=== PATIENT | female | born 1970 | race Caucasian/White ===

== ENCOUNTER → 2018-03-25 | Outpatient (CLI) | payer BC ==
--- NOTE | 2018-03-28 12:36 | MM ---
Reason for exam: screening (asymptomatic). Last mammogram was performed 1 year and 8 months ago. Physical Findings: A clinical breast exam by your physician is recommended on an annual basis and results should be correlated with mammographic findings. MG Screening Mammo w CAD Bilateral CC, MLO, and XCCL view(s) were taken. Prior study comparison: July 10, 2016, bilateral MG screening mammo w CAD. November 30, 2014, bilateral MG screening mammo w CAD. The breast tissue is heterogeneously dense. This may lower the sensitivity of mammography. Stable benign calcifications. There is no discrete abnormality. No significant changes when compared with prior studies. ASSESSMENT: Benign, BI-RAD 2 RECOMMENDATION: Routine screening mammogram of both breasts in 1 year.
== END | disposition home or self-care (01) ==
LOC: RADMAMWWP 13:36
PROVIDERS: ATTEND Family Medicine
DX: Z12.31 Encounter for screening mammogram for malignant neoplasm of breast (principal)
CPT/HCPCS: 77067

== ENCOUNTER → 2019-06-15 | Outpatient (CLI) | payer BC ==
[2019-06-15 15:44] LABS: Basophils # (A) 0.1 k/uL (0-0.2); Basophils % (A) 1 %; Eosinophils # (A) 0.1 k/uL (0-0.7); Eosinophils % (A) 1 %; HCT 45.9 % (34.0-46.0); HGB 15.3 gm/dL (11.4-16.0); Lymphocytes # (A) 3.4 k/uL (1.0-4.8); Lymphocytes % (A) 38 %; MCH 31.6 pg (25.0-35.0); MCHC 33.3 g/dL (31.0-37.0); Mean Platelet Volume 6.7; Monocytes # (A) 0.4 k/uL (0-1.0); Monocytes % (A) 4 %; Neutrophils # (A) 4.8 k/uL (1.3-7.7); Neutrophils % (A) 54 %; Platelet Count 355 k/uL (150-450); RBC 4.83 m/uL (3.80-5.40)
[2019-06-15 20:21] LABS: African American GFR (CKD) 124.9 (60.0-200.0); Albumin 4.6 g/dL (3.80-4.90); Albumin/Globulin Ratio 2.3 (1.60-3.17); Anion Gap 7.9 mmol/L (4.00-12.00); BUN/Creat Ratio 16.67 Ratio (12.00-20.00); Carbon Dioxide 27.1 mmol/L (21.6-31.8); Chol/HDL Ratio 4.17; LDL Cholesterol,Calculated 148.8 mg/dL (0.0-131.0); Non-African American GFR(CKD) 107.8 (60.0-200.0); Potassium 4.2 mmol/L (3.5-5.5); Total Bilirubin 0.3 mg/dL (0.2-1.2); Total Protein 6.6 g/dL (6.2-8.2); VLDL Calculation 22.2 mg/dL (5.00-40.00)
[2019-06-16 04:38] LABS: Hemoglobin A1C 5.6 % (4.0-6.0)
== END | disposition home or self-care (01) ==
LOC: LABWHC1 14:02
PROVIDERS: ATTEND Internal Medicine
DX: I10 Essential (primary) hypertension (principal); E66.9 Obesity, unspecified
CPT/HCPCS: 36415; 80053; 80061; 83036; 84443; 85025

== ENCOUNTER → 2020-10-22 | Outpatient (CLI) | payer BC ==
--- NOTE | 2020-10-22 16:40 | US ---
EXAMINATION TYPE: US carotid duplex BILAT DATE OF EXAM: 10/22/2020 COMPARISON: NONE CLINICAL HISTORY: CAD due to lipid rich plaque I25.83. Pt states family history of heart disease, pt has no complaints at this time EXAM MEASUREMENTS: RIGHT: Peak Systolic Velocity (PSV) cm/sec ----- Right CCA: 72.9 ----- Right ICA: 88.6 ----- Right ECA: 170.7 ICA/CCA ratio: 1.2 RIGHT: End Diastole cm/sec ----- Right CCA: 29.3 ----- Right ICA: 45.7 ----- Right ECA: 48.5 LEFT: Peak Systolic Velocity (PSV) cm/sec ----- Left CCA: 78.7 ----- Left ICA: 87.5 ----- Left ECA: 83.4 ICA/CCA ratio: 1.1 LEFT: End Diastole cm/sec ----- Left CCA: 32.5 ----- Left ICA: 45.7 ----- Left ECA: 23.2 VERTEBRALS (direction of flow): Right Vertebral: Antegrade Left Vertebral: Antegrade Rhythm: Normal Elevated velocities within right ECA, otherwise no evidence of significant stenosis grayscale, color Doppler, spectral Doppler imaging performed of the carotid arteries. Waveform analysis does not show significant stenosis of the internal carotid arteries. IMPRESSION: No hemodynamic significant stenosis of the proximal internal carotid arteries by Doppler criteria, an indirect measurement of carotid stenosis Criteria for Assigning % of Stenosis / Diameter reduction (Estimation based on the indirect measurements of the internal carotid artery velocities (ICA PSV). 1. Normal (no stenosis)=ICA PSV < 125 cm/s: ratio < 2.0: ICA EDV<40 cm/s. 2. Less than 50% stenosis=ICA PSV < 125 cm/s: ratio < 2.0: ICA EDV<40 cm/s. 3. 50 to 69% stenosis=ICA PSV of 125 to 230 cm/s: ration 2.0 ? 4.0: ICA EDV 40-100 cm/s. 4. Greater than 70% stenosis to near occlusion= ICA PSV > 230 cm/s: ratio > 4.0: ICA EDV > 100 cm/s. 5. Near occlusion= ICA PSV velocities may be low or undetectable: variable ratio and ICA EDV. 6. Total occlusion=unable to detect flow.
--- NOTE | 2020-10-23 07:54 | ECHOF ---
Referral Reason:CAD due to lipid rich plaque I25.83 MEASUREMENTS -------- HEIGHT: 165.1 cm WEIGHT: 88.0 kg BP: RVIDd: 2.7 cm (< 3.3) IVSd: 1.1 cm (0.6 - 1.1) LVIDd: 4.1 cm (3.9 - 5.3) LVPWd: 0.8 cm (0.6 - 1.1) IVSs: 1.2 cm LVIDs: 2.7 cm LVPWs: 1.4 cm LAESV Index (A-L): 15.61 ml/m Ao Diam: 3.3 cm (2.0 - 3.7) AV Cusp: 1.9 cm (1.5 - 2.6) MV EXCURSION: 20.954 mm (> 18.000) MV EF SLOPE: 97 mm/s (70 - 150) EPSS: 0.5 cm MV E Mohamud: 0.87 m/s MV DecT: 228 ms MV A Mohamud: 1.11 m/s MV E/A Ratio: 0.79 RAP: 5.00 mmHg RVSP: 25.62 mmHg FINDINGS -------- Sinus rhythm. This was a technically good study. LV size, wall thickness and systolic function are normal, with an EF greater than 55%. The left jack tricular size is normal. The right ventricle is normal in size. The left atrial size is normal. The right atrial size is normal. The aortic valve is trileaflet, and appears structurally normal. No aortic stenosis or regurgitation. Mild mitral regurgitation is present. Mild tricuspid regurgitation present. Right ventricular systolic pressure is normal at < 35 mmHg. There is no pulmonic regurgitation present. The aortic root size is normal. Echo free space represents a pericardial fat pad. CONCLUSIONS -------- 1. LV size, wall thickness and systolic function are normal, with an EF greater than 55%. 2. The left ventricular size is normal. 3. The right ventricle is normal in size. 4. The left atrial size is normal. 5. The right atrial size is normal. 6. Mild mitral regurgitation is present. 7. Mild tricuspid regurgitation present. 8. The aortic root size is normal. 9. Echo free space represents a pericardial fat pad. PRODUCTION SUPERVISOR TRAINEE: Patricia Ho RDCS
== END | disposition home or self-care (01) ==
LOC: RADECHMAIN 15:15
PROVIDERS: ATTEND Internal Medicine
DX: I08.1 Rheumatic disorders of both mitral and tricuspid valves (principal); I25.10 Atherosclerotic heart disease of native coronary artery without angina pectoris; Z82.49 Family history of ischemic heart disease and other diseases of the circulatory system
CPT/HCPCS: 93306; 93880

== ENCOUNTER → 2021-03-04 | Outpatient (CLI) | payer BC | END | disposition home or self-care (01) | LOC: CPPFTMAIN 12:54 | PROVIDERS: ATTEND Internal Medicine | DX: J44.9 Chronic obstructive pulmonary disease, unspecified (principal) | CPT/HCPCS: 94060; 94726; 94729 ==

== ENCOUNTER → 2021-04-30 | Outpatient (CLI) | payer BC ==
--- NOTE | 2021-04-30 12:45 | US ---
EXAMINATION TYPE: US thyroid st tissue head/neck DATE OF EXAM: 04/30/2021 COMPARISON: EXAMINATION TYPE: US thyroid st tissue head/neck DATE OF EXAM: 04/30/2021 COMPARISON: NONE CLINICAL HISTORY: R22.1 Localized swelling, mass and lump, neck. History of Left parotid mass removal with reconstruction with muscle ? lymph node seen in area of palp measuring 2.3x2.0x1.0cm with positive flow Cystic region seen inferior to lymph node 1.1x0.6x0.5cm Right side scanned to compare. Lymph node seen 1.7x0.7x0.9cm IMPRESSION: Palpable area of concern corresponds to an enlarged lymph node. Correlate clinically.
== END | disposition home or self-care (01) ==
LOC: RADUSWWP 11:54
PROVIDERS: ATTEND Internal Medicine
DX: R22.1 Localized swelling, mass and lump, neck (principal)
CPT/HCPCS: 76536

== ENCOUNTER → 2021-05-03 | Outpatient (CLI) | payer BC ==
--- NOTE | 2021-05-03 13:26 | CT ---
EXAMINATION TYPE: CT soft tissue neck wo/w con DATE OF EXAM: 05/03/2021 COMPARISON: none HISTORY: Abn US, enlarged lymph odes on both sides. History of Lt parotid tumor removal CT DLP: 1072.7 mGycm CONTRAST: CT scan of the neck is performed without and with IV Contrast, patient injected with 100 mL of Isovue 300. Contrast enhanced CT of the neck was performed from the skull base through the lung apices. AIRWAY: The supraglottic, glottic, and subglottic portions of the airway appear patent and free of mass. SALIVARY GLANDS: Submandibular glands are unremarkable. Enhancing 1.7 cm and specific lesion lower po le of the left parotid gland. Mid pole lesion right parotid gland measures 8.4 cm. THYROID GLAND: No nodules or masses seen. LYMPH NODES: Right internal jugular chain lymph node measuring 1.1 cm. Left internal jugular chain ly mph node measuring 8 mm. LUNG APICES: No nodule or mass is seen. OTHER: Vascular structures are patent. No significant degenerative change of the cervical spine. N o abscess seen. IMPRESSION: 1 nonspecific parotid lesions. 2. Adenopathy right internal jugular chain.
== END | disposition home or self-care (01) ==
LOC: RADCTMAIN 09:19
PROVIDERS: ATTEND Internal Medicine
DX: R59.0 Localized enlarged lymph nodes (principal); K11.8 Other diseases of salivary glands
CPT/HCPCS: 70492; Q9967

== ENCOUNTER 2021-05-26 12:16 | Day surgery (SDC) | payer BC ==
--- NOTE | 2021-05-26 14:53 | US ---
ULTRASOUND GUIDED FNA AND CORE BIOPSY BILATERAL PAROTID GLAND: CLINICAL HISTORY: Bilateral parotid nodules FINDINGS: The procedure was explained to the patient. The risks, complications, benefits and alternatives were discussed and any questions were answered. Informed consent was obtained. Patient was placed supin e on the ultrasound table and prepped and draped in the usual sterile fashion. Utilizing a 25 gauge needle, two passes were made into the larger left parotid nodule. Additionally 2 18-gauge core sample s were obtained. The smaller right parotid nodule is deviated reduction was difficult access with core needle and ther efore as requested multiple fine-needle aspirates were obtained.. Patient was stable throughout the procedure. Pathology is pending. All elements of maximal barrier and sterile technique were utilized. IMPRESSION: 1. Successful ultrasound guided FNA and core biopsy left parotid nodule and FNA right parotid nodule .
[2021-05-26 16:12] VITALS: RESP 18
[2021-05-26 16:13] VITALS: BP 114/62; PULSE 68; TEMP 98.2
== END 2021-05-26 14:10 | disposition home or self-care (01) ==
LOC: RADPROMAIN 12:16
PROVIDERS: ATTEND Otolaryngology
DX: D11.0 Benign neoplasm of parotid gland (principal)
CPT/HCPCS: 10005; 10006; 42400; 76942; 88173; 88305

== ENCOUNTER 2021-06-01 09:06 | Emergency (ER) | payer BC ==
--- NOTE | 2021-06-01 10:52 | ED ---
Neck Injury/Pain HPI - General Chief Complaint: Neck Pain/Injury Stated Complaint: neck pain Time Seen by Provider: 06/01/21 10:01 Source: patient, RN notes reviewed Mode of arrival: ambulatory Limitations: no limitations - History of Present Illness Initial Comments: This a 50-year-old female presents emergency from chief complaint left-sided neck pain. Patient states she had a biopsy by Dr. Shelotn ordered by Dr. Kim last Wednesday. She states she has some soreness after biopsy but states now over the last she's had increase in pain, swelling on the left side of her neck, postauricular region where she had the biopsy. Patient denies fevers chills night sweats states that she does have follow-up appointment this week with ENT regarding her results. She does admit that she's had a prior tumor removed in this region. - Related Data Home Medications Medication Instructions Recorded Confirmed Beclomethasone Dipropionate [Qvar 1 puff PO DAILY PRN 05/21/21 06/01/21 80mcg Redihaler] Rosuvastatin [Crestor] 10 mg PO Q48H 05/21/21 06/01/21 amLODIPine [Norvasc] 5 mg PO HS 05/21/21 06/01/21 Previous Rx's Medication Instructions Recorded Amoxicillin/Potassium Clav 1 tab PO Q12HR #20 tab 06/01/21 [Augmentin 875-125 Tablet] Allergies Allergy/AdvReac Type Severity Reaction Status Date / Time No Known Allergies Allergy Verified 06/01/21 10:59 Review of Systems ROS Statement: Those systems with pertinent positive or pertinent negative responses have been documented in the HPI. ROS Other: All systems not noted in ROS Statement are negative. Past Medical History Past Medical History: Asthma, Hyperlipidemia, Hypertension Additional Past Medical History / Comment(s): bilateral parotid massess History of Any Multi-Drug Resistant Organisms: None Reported Past Surgical History: Orthopedic Surgery, Uterine Ablation Additional Past Surgical History / Comment(s): left parotid mass removal 2017, surgery for plantar fascitis in 2018 on left, foot surgery times 2 with screws placed and then removed, left shoulder surgery for torn rotator cuff, neck biopsy Past Anesthesia/Blood Transfusion Reactions: No Reported Reaction Additional Past Anesthesia/Blood Transfusion Reaction / Comment(s): no previous blood transfusion Past Psychological History: No Psychological Hx Reported Smoking Status: Former smoker Past Alcohol Use History: Occasional Past Drug Use History: None Reported - Past Family History Mother Family Medical History: Cancer Additional Family Medical History / Comment(s): lung Father Family Medical History: Cancer Additional Family Medical History / Comment(s): lung General Exam Limitations: no limitations General appearance: alert, in no apparent distress Head exam: Present: atraumatic, normocephalic, normal inspection Eye exam: Present: normal appearance, PERRL, EOMI. Absent: scleral icterus, conjunctival injection, periorbital swelling ENT exam: Present: normal oropharynx, mucous membranes moist, TM's normal bilaterally. Absent: normal exam (Inferior and postauricular the left ear is noted ecchymotic area, swelling, tenderness with palpation no erythema) Neck exam: Present: normal inspection, full ROM. Absent: tenderness, meningismus, lymphadenopathy Respiratory exam: Present: normal lung sounds bilaterally. Absent: respiratory distress, wheezes, rales, rhonchi, stridor Cardiovascular Exam: Present: regular rate, normal rhythm, normal heart sounds. Absent: systolic murmur, diastolic murmur, rubs, gallop, clicks Course Vital Signs 06/01/21 09:07 Temperature 98.3 F Pulse Rate 94 Respiratory 17 Rate Blood Pressure 123/92 O2 Sat by Pulse 96 Oximetry Medical Decision Making - Medical Decision Making 50-year-old female presented presented for neck pain. Patient has some swelling on the site of biopsy. This may be hematoma versus abscess. Patient we cover for an abscess has a follow-up appointment on Wednesday with ENT return parameters were discussed. - Lab Data Result diagrams: 06/01/21 10:57 06/01/21 10:57 Lab Results 06/01/21 06/01/21 Range/Units 10:57 10:57 WBC 7.1 (3.8-10.6) k/uL RBC 4.87 (3.80-5.40) m/uL Hgb 15.4 (11.4-16.0) gm/dL Hct 45.9 (34.0-46.0) % MCV 94.2 (80.0-100.0) fL MCH 31.7 (25.0-35.0) pg MCHC 33.6 (31.0-37.0) g/dL RDW 13.4 (11.5-15.5) % Plt Count 342 (150-450) k/uL MPV 6.9 Neutrophils % 53 % Lymphocytes % 38 % Monocytes % 5 % Eosinophils % 2 % Basophils % 1 % Neutrophils # 3.8 (1.3-7.7) k/uL Lymphocytes # 2.7 (1.0-4.8) k/uL Monocytes # 0.3 (0-1.0) k/uL Eosinophils # 0.2 (0-0.7) k/uL Basophils # 0.1 (0-0.2) k/uL Sodium 138 (137-145) mmol/L Potassium 4.6 (3.5-5.1) mmol/L Chloride 108 H (98-107) mmol/L Carbon Dioxide 23 (22-30) mmol/L Anion Gap 7 mmol/L BUN 12 (7-17) mg/dL Creatinine 0.59 (0.52-1.04) mg/dL Est GFR (CKD-EPI)AfAm >90 (>60 ml/min/1.73 sqM) Est GFR (CKD-EPI)NonAf >90 (>60 ml/min/1.73 sqM) Glucose 94 (74-99) mg/dL Calcium 9.9 (8.4-10.2) mg/dL Disposition Clinical Impression: Hematoma of neck Disposition: HOME SELF-CARE Condition: Stable Instructions (If sedation given, give patient instructions): Hematoma (ED) Additional Instructions: Please return to the Emergency Department if symptoms worsen or any other concerns. Prescriptions: Amoxicillin/Potassium Clav [Augmentin 875-125 Tablet] 1 tab PO Q12HR #20 tab Is patient prescribed a controlled substance at d/c from ED?: No Referrals: Dimitri Gruber MD [Primary Care Provider] - 1-2 days Time of Disposition: 12:14
[2021-06-01 11:05] LABS: Basophils # (A) 0.1 k/uL (0-0.2); Basophils % (A) 1 %; Eosinophils # (A) 0.2 k/uL (0-0.7); Eosinophils % (A) 2 %; HCT 45.9 % (34.0-46.0); HGB 15.4 gm/dL (11.4-16.0); Lymphocytes # (A) 2.7 k/uL (1.0-4.8); Lymphocytes % (A) 38 %; MCH 31.7 pg (25.0-35.0); MCHC 33.6 g/dL (31.0-37.0); MCV 94.2 fL (80.0-100.0); Mean Platelet Volume 6.9; Monocytes # (A) 0.3 k/uL (0-1.0); Monocytes % (A) 5 %; Neutrophils # (A) 3.8 k/uL (1.3-7.7); Neutrophils % (A) 53 %; Platelet Count 342 k/uL (150-450); RBC 4.87 m/uL (3.80-5.40); RDW 13.4 % (11.5-15.5); WBC 7.1 k/uL (3.8-10.6)
[2021-06-01 11:21] LABS: African American GFR (CKD) >90 (>60 ml/min/1.73 sqM); Anion Gap 7 mmol/L; Blood Urea Nitrogen 12 mg/dL (7-17); Calcium 9.9 mg/dL (8.4-10.2); Carbon Dioxide 23 mmol/L (22-30); Chloride 108 mmol/L (98-107); Glucose 94 mg/dL (74-99); Non-African American GFR(CKD) >90 (>60 ml/min/1.73 sqM); Sodium 138 mmol/L (137-145)
[2021-06-01 11:27] LABS: Potassium 4.6 mmol/L (3.5-5.1)
--- NOTE | 2021-06-01 11:41 | CT ---
EXAMINATION TYPE: CT soft tissue neck w con DATE OF EXAM: 06/01/2021 11:17 AM COMPARISON: 05/03/2021 HISTORY: Lt sided jaw and ear pain, neck swelling, Parotid bx on 05/26/2021 CT DLP: 290.3 mGycm Automated exposure control for dose reduction was used. CONTRAST: CT scan of the neck is performed following with IV Contrast, patient injected with 100 mL of Isovue 3 00. Axial images are obtained, coronal and sagittal reformatted images are reviewed. FINDINGS: Airway: Patent airways. Upper lung COPD/emphysema changes. Parotid/submandibular/thyroid glands: There is a bilobed peripherally enhancing centrally low attenu ating lesion in the inferior pole of the left parotid gland at the site of previously seen enhancing left parotid lesion. This bilobed structure has a dimension of 2.1 x 1.8 x 1.5 cm. Mild overlying sof t tissue swelling. A 1.1 x 0.7 cm enhancing lesion the right parotid gland is stable. Submandibular glands are unremarka ble. Stable small calcific density in the right thyroid lobe. Lymph nodes: 1.1 cm right internal jugular chain lymph node stable. Carotid/Vascular Structures: Unremarkable. Osseous Structures: Small amount of bilateral mastoid air cell effusion developed in the interval. A destructive or erosive osseous changes seen. Degenerative changes are noted in the cervical spine. Other: No prevertebral soft tissue swelling seen. Included inferior portion of the brain is unremarka ble. IMPRESSION: 1. In the left parotid gland at the site of biopsy and previously seen enhancing mass there is now a bilobed peripherally enhancing centrally low attenuating lesion which may be reflective of postsurgic al hematoma/changes and/or developing abscess, this measures 2.1 x 1.8 x 1.5 cm. There is mild overly ing soft tissue swelling. 2. Stable 1.1 cm enhancing lesion the right parotid gland. 3. Stable enlarged 1.1 cm right internal jugular chain lymph node. 4. Small amount of bilateral mastoid air cell effusion developed in the interval. 5. Stable calcific nodule in the right thyroid lobe.
[2021-06-01] MEDS ORDERED: cefTRIAXone IN SWFI 1,000 MG/10 ML SYRINGE IVP STA (12:12)
[2021-06-01 12:37] VITALS: BP 123/81; PULSE 75; RESP 20; TEMP 98.1
== END 2021-06-01 12:37 | disposition home or self-care (01) ==
LOC: EC 09:06
DX: S10.93XA Contusion of unspecified part of neck, initial encounter (principal); J45.909 Unspecified asthma, uncomplicated; E78.5 Hyperlipidemia, unspecified; I10 Essential (primary) hypertension; Z79.899 Other long term (current) drug therapy; Z87.891 Personal history of nicotine dependence; Z72.89 Other problems related to lifestyle
CPT/HCPCS: 36415; 80048; 85025; 70491; 99284; 96374; J0696; Q9967

== ENCOUNTER 2022-01-02 12:39 | Emergency (ER) | payer BC ==
--- NOTE | 2022-01-02 12:43 | ED ---
General Adult HPI - General Source: patient, EMS, RN notes reviewed Mode of arrival: EMS Limitations: no limitations <Tanner Quan - Last Filed: 01/02/22 12:41> <Vitaly Decker - Last Filed: 01/02/22 16:18> - General Stated complaint: Abd pain Time Seen by Provider: 01/02/22 12:41 - History of Present Illness Initial comments: This is a 51-year-old female presents emergency from via EMS chief complaint abdominal pain. Patient was brought in via EMS with complaints of increasing abdominal pain that started yesterday. Patient is 9 days status post cholecystectomy by Dr. Grant. Patient was seen in office by surgeon sent to [facility] yesterday for testing in which she had CT, lab work with no specific findings. Dr. Grant did request that she have a HIDA scan but was unable to be performed. Patient states that the pain is increased after being discharged with Pepcid she states she did try her pain meds that she had leftover from surgery. Patient was given 100 g of fentanyl by EMS with mild relief. Patient reports no fevers or chills. She states the pain is in her upper abdomen radiates around to the back. (Tanner Quan) - Related Data Home Medications Medication Instructions Recorded Confirmed Beclomethasone Dipropionate [Qvar 1 puff PO DAILY PRN 05/21/21 06/01/21 80mcg Redihaler] Rosuvastatin [Crestor] 10 mg PO Q48H 05/21/21 06/01/21 amLODIPine [Norvasc] 5 mg PO HS 05/21/21 06/01/21 Previous Rx's Medication Instructions Recorded Amoxicillin/Potassium Clav 1 tab PO Q12HR #20 tab 06/01/21 [Augmentin 875-125 Tablet] Allergies Allergy/AdvReac Type Severity Reaction Status Date / Time No Known Allergies Allergy Verified 01/02/22 12:46 Review of Systems ROS Other: All systems not noted in ROS Statement are negative. <Tanner Quan - Last Filed: 01/02/22 12:41> ROS Other: All systems not noted in ROS Statement are negative. <Vitaly Decker - Last Filed: 01/02/22 16:18> ROS Statement: Those systems with pertinent positive or pertinent negative responses have been documented in the HPI. Past Medical History Past Medical History: Asthma, Hyperlipidemia, Hypertension Additional Past Medical History / Comment(s): bilateral parotid massess History of Any Multi-Drug Resistant Organisms: None Reported Past Surgical History: Orthopedic Surgery, Uterine Ablation Additional Past Surgical History / Comment(s): left parotid mass removal 2017, surgery for plantar fascitis in 2018 on left, foot surgery times 2 with screws placed and then removed, left shoulder surgery for torn rotator cuff, neck biopsy Past Anesthesia/Blood Transfusion Reactions: No Reported Reaction Additional Past Anesthesia/Blood Transfusion Reaction / Comment(s): no previous blood transfusion Past Psychological History: No Psychological Hx Reported Smoking Status: Former smoker Past Alcohol Use History: Occasional Past Drug Use History: None Reported - Past Family History Mother Family Medical History: Cancer Additional Family Medical History / Comment(s): lung Father Family Medical History: Cancer Additional Family Medical History / Comment(s): lung <Tanner Quan M - Last Filed: 01/02/22 12:41> General Exam General appearance: alert, in distress Head exam: Present: atraumatic, normocephalic Eye exam: Present: normal appearance, PERRL ENT exam: Present: mucous membranes dry Neck exam: Present: normal inspection. Absent: tenderness, meningismus Respiratory exam: Present: normal lung sounds bilaterally. Absent: respiratory distress, wheezes Cardiovascular Exam: Present: regular rate, normal rhythm GI/Abdominal exam: Present: soft, tenderness (Epigastric). Absent: distended Extremities exam: Present: normal inspection, normal capillary refill. Absent: pedal edema, calf tenderness Neurological exam: Present: alert, oriented X3, CN II-XII intact. Absent: motor sensory deficit Psychiatric exam: Present: anxious Skin exam: Present: warm, dry, intact. Absent: cyanosis, diaphoretic <Vitaly Decker N - Last Filed: 01/02/22 16:18> Course Vital Signs 01/02/22 12:40 Temperature 98.6 F Pulse Rate 100 Respiratory 18 Rate Blood Pressure 117/77 O2 Sat by Pulse 96 Oximetry Medical Decision Making - Lab Data Result diagrams: 01/02/22 14:15 01/02/22 14:15 <Vitaly Decker - Last Filed: 01/02/22 16:18> - Medical Decision Making 51-year-old female with persistent abdominal pain. Patient was seen at outside hospital yesterday. She has CT of the abdomen and laboratory testing performed. The CT read was reviewed and did not show any acute findings. The laboratory tests were unremarkable yesterday. She is in moderate to severe pain which is predominantly epigastric. Vital signs are stable. Workup is initiated in the emergency department, she has a normal CBC, CMP shows an elevated bilirubin, elevated AST and ALT. I did perform an ultrasound to evaluate the common bile duct this was unremarkable. I discussed case with Dr. Grant was familiar with the patient, she does recommend MRCP at this time. MRCP has been ordered pat ient will be kept nothing by mouth. She will be admitted for pain control. (Vitaly Decker) - Lab Data Lab Results 01/02/22 01/02/22 01/02/22 Range/Units 14:15 14:15 14:15 WBC 9.2 (3.8-10.6) k/uL RBC 4.61 (3.80-5.40) m/uL Hgb 14.8 (11.4-16.0) gm/dL Hct 43.7 (34.0-46.0) % MCV 94.8 (80.0-100.0) fL MCH 32.2 (25.0-35.0) pg MCHC 34.0 (31.0-37.0) g/dL RDW 12.9 (11.5-15.5) % Plt Count 343 (150-450) k/uL MPV 7.1 Neutrophils % 71 % Lymphocytes % 20 % Monocytes % 7 % Eosinophils % 1 % Basophils % 1 % Neutrophils # 6.5 (1.3-7.7) k/uL Lymphocytes # 1.8 (1.0-4.8) k/uL Monocytes # 0.7 (0-1.0) k/uL Eosinophils # 0.1 (0-0.7) k/uL Basophils # 0.1 (0-0.2) k/uL Sodium 136 L (137-145) mmol/L Potassium 4.1 (3.5-5.1) mmol/L Chloride 105 (98-107) mmol/L Carbon Dioxide 25 (22-30) mmol/L Anion Gap 6 mmol/L BUN 11 (7-17) mg/dL Creatinine 0.66 (0.52-1.04) mg/dL Est GFR (CKD-EPI)AfAm >90 (>60 ml/min/1.73 sqM) Est GFR (CKD-EPI)NonAf >90 (>60 ml/min/1.73 sqM) Glucose 106 H (74-99) mg/dL Plasma Lactic Acid Jean Paul (0.7-2.0) mmol/L Calcium 9.9 (8.4-10.2) mg/dL Total Bilirubin 2.7 H (0.2-1.3) mg/dL AST 379 H (14-36) U/L ALT 257 H (4-34) U/L Alkaline Phosphatase 171 H (38-126) U/L Total Protein 7.0 (6.3-8.2) g/dL Albumin 4.4 (3.5-5.0) g/dL Amylase 73 (30-110) U/L Lipase 63 (23-300) U/L Urine Color Dark Yellow Urine Appearance Cloudy H (Clear) Urine pH 6.5 (5.0-8.0) Ur Specific [place] 1.013 (1.001-1.035) Urine Protein Trace H (Negative) Urine Glucose (UA) Negative (Negative) Urine Ketones Negative (Negative) Urine Blood Negative (Negative) Urine Nitrite Negative (Negative) Urine Bilirubin 1+ H (Negative) Urine Urobilinogen <2.0 (<2.0) mg/dL Ur Leukocyte Esterase Large H (Negative) Urine RBC 2 (0-5) /hpf Urine WBC 8 H (0-5) /hpf Ur Squamous Epith Cells 10 H (0-4) /hpf Urine Bacteria Rare H (None) /hpf Urine Mucus Occasional H (None) /hpf 01/02/22 Range/Units 14:15 WBC (3.8-10.6) k/uL RBC (3.80-5.40) m/uL Hgb (11.4-16.0) gm/dL Hct (34.0-46.0) % MCV (80.0-100.0) fL MCH (25.0-35.0) pg MCHC (31.0-37.0) g/dL RDW (11.5-15.5) % Plt Count (150-450) k/uL MPV Neutrophils % % Lymphocytes % % Monocytes % % Eosinophils % % Basophils % % Neutrophils # (1.3-7.7) k/uL Lymphocytes # (1.0-4.8) k/uL Monocytes # (0-1.0) k/uL Eosinophils # (0-0.7) k/uL Basophils # (0-0.2) k/uL Sodium (137-145) mmol/L Potassium (3.5-5.1) mmol/L Chloride (98-107) mmol/L Carbon Dioxide (22-30) mmol/L Anion Gap mmol/L BUN (7-17) mg/dL Creatinine (0.52-1.04) mg/dL Est GFR (CKD-EPI)AfAm (>60 ml/min/1.73 sqM) Est GFR (CKD-EPI)NonAf (>60 ml/min/1.73 sqM) Glucose (74-99) mg/dL Plasma Lactic Acid Jean Paul 0.9 (0.7-2.0) mmol/L Calcium (8.4-10.2) mg/dL Total Bilirubin (0.2-1.3) mg/dL AST (14-36) U/L ALT (4-34) U/L Alkaline Phosphatase (38-126) U/L Total Protein (6.3-8.2) g/dL Albumin (3.5-5.0) g/dL Amylase (30-110) U/L Lipase (23-300) U/L Urine Color Urine Appearance (Clear) Urine pH (5.0-8.0) Ur Specific [place] (1.001-1.035) Urine Protein (Negative) Urine Glucose (UA) (Negative) Urine Ketones (Negative) Urine Blood (Negative) Urine Nitrite (Negative) Urine Bilirubin (Negative) Urine Urobilinogen (<2.0) mg/dL Ur Leukocyte Esterase (Negative) Urine RBC (0-5) /hpf Urine WBC (0-5) /hpf Ur Squamous Epith Cells (0-4) /hpf Urine Bacteria (None) /hpf Urine Mucus (None) /hpf Disposition <Tanner Quan - Last Filed: 01/02/22 12:41> Is patient prescribed a controlled substance at d/c from ED?: No Time of Disposition: 16:18 <Vitaly Decker - Last Filed: 01/02/22 16:18> Clinical Impression: Abdominal pain, Hyperbilirubinemia, Transaminitis Disposition: ADMITTED IP TO THIS [facility] Condition: Stable Referrals: Walter Matthew MD [Primary Care Provider] - 1-2 days
[2022-01-02 12:45] VITALS: BP 117/77; PULSE 100; RESP 18; TEMP 98.6
[2022-01-02] MEDS ORDERED: SODIUM CHLORIDE 0.9% 500 ML 500 ML IV ONE (14:09)
[2022-01-02] MEDS ORDERED: HYDROmorphone 1 MG/ML 1 ML SYRINGE IVP STA ×2 (14:09→15:04)
[2022-01-02 14:27] LABS: Basophils # (A) 0.1 k/uL (0-0.2); Basophils % (A) 1 %; Eosinophils # (A) 0.1 k/uL (0-0.7); Eosinophils % (A) 1 %; HCT 43.7 % (34.0-46.0); HGB 14.8 gm/dL (11.4-16.0); Lymphocytes # (A) 1.8 k/uL (1.0-4.8); Lymphocytes % (A) 20 %; MCH 32.2 pg (25.0-35.0); MCV 94.8 fL (80.0-100.0); Mean Platelet Volume 7.1; Monocytes # (A) 0.7 k/uL (0-1.0); Monocytes % (A) 7 %; Neutrophils # (A) 6.5 k/uL (1.3-7.7); Neutrophils % (A) 71 %; Platelet Count 343 k/uL (150-450); RBC 4.61 m/uL (3.80-5.40); RDW 12.9 % (11.5-15.5); WBC 9.2 k/uL (3.8-10.6)
[2022-01-02 14:37] LABS: ALT 257 U/L (4-34); AST 379 U/L (14-36); African American GFR (CKD) >90 (>60 ml/min/1.73 sqM); Albumin 4.4 g/dL (3.5-5.0); Alkaline Phosphatase 171 U/L (38-126); Amylase 73 U/L (30-110); Anion Gap 6 mmol/L; Blood Urea Nitrogen 11 mg/dL (7-17); Calcium 9.9 mg/dL (8.4-10.2); Carbon Dioxide 25 mmol/L (22-30); Chloride 105 mmol/L (98-107); Glucose 106 mg/dL (74-99); Lipase 63 U/L (23-300); Non-African American GFR(CKD) >90 (>60 ml/min/1.73 sqM); Potassium 4.1 mmol/L (3.5-5.1); Sodium 136 mmol/L (137-145); Total Bilirubin 2.7 mg/dL (0.2-1.3)
[2022-01-02 14:47] LABS: Appearance,Urine Cloudy (Clear); Bacteria,Urine Rare /hpf; Bilirubin,Urine 1+ (Negative); Blood,Urine Negative (Negative); Color,Urine Dark Yellow; Glucose,Urine (UA) Negative (Negative); Ketones,Urine Negative (Negative); Leukocyte Esterase,Urine Large (Negative); Mucus,Urine Occasional /hpf; Nitrite,Urine Negative (Negative); PH, Urine 6.5 (5.0-8.0); Protein,Urine Trace (Negative); RBC,Urine 2 /hpf (0-5); Specific Gravity,Urine 1.013 (1.001-1.035); Squamous Epithelial Cell,Urine 10 /hpf (0-4); Urobilinogen,Urine <2.0 mg/dL (<2.0); WBC,Urine 8 /hpf (0-5)
--- NOTE | 2022-01-02 15:49 | US ---
EXAMINATION TYPE: US gallbladder DATE OF EXAM: 01/02/2022 COMPARISON: US CLINICAL HISTORY: ab pain. ABD pain s/p recent GB removal EXAM MEASUREMENTS: Liver Length: 15.1 cm CBD: 0.5 cm Right Kidney: 9.3 x 4.3 x 4.3 cm Pancreas: Obscured by bowel gas Liver: Visualized portions appeared wnl Gallbladder: Surgically absent Evidence for sonographic Rasmussen's sign: N/A, pain in the right upper quadrant. CBD: wnl Right Kidney: wnl, lower pole gassed out IMPRESSION: Hepatocellular disease most commonly relating to hepatic steatosis.
[2022-01-02] MEDS ORDERED: ONDANSETRON 4 MG/2 ML VIAL IVP PRN (16:14)
[2022-01-02] MEDS ORDERED: HYDROmorphone 0.5 MG/0.5 ML SYRINGE IVP PRN (16:14)
[2022-01-02] MEDS ORDERED: HYDROmorphone 1 MG/ML 1 ML SYRINGE IVP PRN (16:14)
[2022-01-02] MEDS ORDERED: NALOXONE 0.4 MG/ML 1 ML VIAL IV PRN (16:14)
--- NOTE | 2022-01-02 16:14 | XR ---
EXAMINATION TYPE: XR KUB DATE OF EXAM: 01/02/2022 3:54 PM INDICATION: Patient age:Female; 51 years old; Reason for study: ab pain; COMPARISON: None. TECHNIQUE: One radiographic view of the abdomen was obtained. FINDINGS: Cholecystectomy clips are present. The bowel gas pattern is nonspecific without dilated loo ps of small or large bowel. There is no evidence for organomegaly or pneumoperitoneum. The osseous s tructures are intact. Multilevel disc degeneration changes are seen throughout the spine. No abnormal calcifications are present. Fecal material and gas are demonstrated throughout the colon and rectum. IMPRESSION: Nonspecific bowel gas pattern without radiographic evidence for acute process.
[2022-01-02] MEDS ORDERED: PANTOPRAZOLE 40 MG/10 ML VIAL IV SCH (16:15)
[2022-01-02] MEDS ORDERED: SODIUM CHLORIDE 0.9% 1,000 ML IV SCH (16:15)
[2022-01-02] MEDS ORDERED: PIPERACILLIN-TAZOBACTAM 3.375 GM in SODIUM CHLORIDE 0.9% 100 ML IVPB STA (16:42)
== END 2022-01-02 19:30 | disposition other institution (70) ==
LOC: EC 12:39 → UNDOADMIN 16:14 → 4SSUR 16:14 → EC 19:30
DX: E80.6 Other disorders of bilirubin metabolism (principal); J45.909 Unspecified asthma, uncomplicated; E78.5 Hyperlipidemia, unspecified; I10 Essential (primary) hypertension; Z87.891 Personal history of nicotine dependence
CPT/HCPCS: 36415; 80053; 82150; 83605; 83690; 85025; 81001; 74018; 76705; 99285; 96365; 96366; 96361; 96375; 96376; J2543; J1170; C9113

== ENCOUNTER → 2022-02-12 | Outpatient (CLI) | payer BC ==
[2022-02-12 18:28] LABS: ALT 18 U/L (8-44); AST 19 U/L (13-35); Albumin 4.5 g/dL (3.8-4.9); Albumin/Globulin Ratio 1.55 (1.60-3.17); Alkaline Phosphatase 123 U/L (41-126); Bilirubin, Conjugated <0.20 mg/dL (0.20-0.40); Globulin 2.9 g/dL (1.6-3.3); Total Bilirubin <0.15 mg/dL (0.30-1.20); Total Protein 7.4 g/dL (6.2-8.2)
== END | disposition home or self-care (01) ==
LOC: LABWHC1 14:21
PROVIDERS: ATTEND Internal Medicine Gastroenterology
DX: R74.01 Elevation of levels of liver transaminase levels (principal)
CPT/HCPCS: 36415; 80076

== ENCOUNTER → 2022-02-12 | Outpatient (CLI) | payer BC ==
--- NOTE | 2022-02-13 08:15 | MM ---
Reason for Exam: Screening (asymptomatic). Last mammogram was performed 3 year(s) and 11 month(s) ago. Patient History: Menarche at age 12. First Full-Term at age 17. Postmenopausal. Risk Values: Veronica 5 year model risk: 0.7%. NCI Lifetime model risk: 6.4%. Prior Study Comparison: 11/30/2014 Bilateral Screening Mammogram, [facility]. 07/10/2016 Bilateral Screening Mammogram, [facility]. 03/25/2018 Bilateral Screening Mammogram, [facility]. Tissue Density: There are scattered fibroglandular densities. Findings: Analyzed By CAD. There is no suspicious group of microcalcifications or new suspicious mass in either breast. Overall Assessment: Negative, BI-RAD 1 Management: Screening Mammogram of both breasts in 1 year. A clinical breast exam by your physician is recommended on an annual basis and results should be correlated with mammographic findings. Electronically signed and approved by: Vitaly Burciaga DO
== END | disposition home or self-care (01) ==
LOC: RADMAMWWP 14:23
PROVIDERS: ATTEND Internal Medicine Geriatric Medicine
DX: Z12.31 Encounter for screening mammogram for malignant neoplasm of breast (principal); Z78.0 Asymptomatic menopausal state
CPT/HCPCS: 77067

== ENCOUNTER → 2022-12-30 | Outpatient (CLI) | payer BC ==
--- NOTE | 2022-12-30 11:46 | US ---
EXAMINATION TYPE: US abdomen complete DATE OF EXAM: 12/30/2022 COMPARISON: US 2021 CLINICAL INDICATION: Female, 52 years old with history of R10.9 ABDOMINAL PAIN; LUQ discomfort x 1 ye ar TECHNIQUE: Multiple sonographic images of the abdomen are obtained. FINDINGS: EXAM MEASUREMENTS: Liver Length: 15.8 cm CBD: 0.5 cm Spleen: 10.5 cm Right Kidney: 10.9 x 5.2 x 4.5 cm Left Kidney: 10.9 x 6.9 x 4.9 cm Pancreas: visualized portions wnl, limited by overlying midline bowel gas Liver: scanned intercostally, visualized portions wnl Gallbladder: surgically absent Evidence for sonographic Rasmussen's sign: no CBD: visualized portions wnl, limited by overlying bowel gas Spleen: wnl Right Kidney: wnl Left Kidney: wnl Upper IVC: wnl Abd Aorta: wnl IMPRESSION: 1. No acute ultrasound abdomen abnormality
== END | disposition home or self-care (01) ==
LOC: RADUSWWP 09:55
PROVIDERS: ATTEND Internal Medicine Geriatric Medicine
DX: R10.9 Unspecified abdominal pain (principal)
CPT/HCPCS: 76700

== ENCOUNTER → 2023-01-01 | Outpatient (CLI) | payer BC ==
--- NOTE | 2023-01-01 19:00 | CT ---
EXAMINATION TYPE: CT abdomen pelvis w con DATE OF EXAM: 01/01/2023 COMPARISON: Ultrasound 12/30/2022 HISTORY: 52-year-old female R10.9, Left sided epigastric abdominal pain. TECHNIQUE: Contiguous axial scanning of the abdomen and pelvis following administration of 100 ml Iso nita 300 IV contrast. Delayed images through the kidneys and coronal/sagittal reconstructions perform ed. CT DLP: 1371.7 mGycm Automated exposure control for dose reduction was used. FINDINGS: LUNG BASES: A 4 mm posterolateral right basilar pulmonary nodule as well as a 4 mm lateral left basil ar pulmonary nodule. Middle emphysematous change noted. Three-month follow-up CT chest to reassess th joi nodules and also to survey the remainder of the lungs. No pleural effusion. Heart normal size wit hout pericardial effusion. LIVER/GB: Gallbladder surgically absent. Otherwise, no significant abnormality is appreciated. PANCREAS: No significant abnormality is seen. SPLEEN: No significant abnormality is seen. ADRENALS: 1.9 cm left adrenal nodule. Statistically representing an adrenal adenoma. Repeat CT in 12 months to ensure stability. Right adrenal gland within normal limits. KIDNEYS: Posterior right renal cortical cyst measuring 1.8 cm. No hydronephrosis or other discrete ab normality is seen. BOWEL: Nondilated small bowel. Mild stool burden. Oral contrast progressed to the lower descending co rao. No pericolic inflammatory change. Normal appendix. LYMPH NODES: No significant abnormality is seen. OTHER: No free fluid or free air. Minimal atherosclerotic calcifications infrarenal abdominal aorta. PELVIS: Bladder partially distended. Uterus anteverted. Small bilateral ovaries. No abnormal fluid co llection in the pelvis or pelvic lymphadenopathy. BONES: No significant abnormality is seen. IMPRESSION: 1. A COUPLE 4 MM PULMONARY NODULES IN THE LOWER LUNGS. RECOMMEND THREE-MONTH FOLLOW-UP CT CHEST TO RE ASSESS AND ALSO TO SURVEY THE REMAINDER OF THE LUNGS. 2. A 1.9 CM LEFT ADRENAL NODULE, LIKELY BENIGN, INCIDENTAL ADRENAL ADENOMA. RECOMMEND 12 MONTH FOLLOW -UP ADRENAL CT TO ENSURE STABILITY. 3. NO ACUTE INFLAMMATORY PROCESS IDENTIFIED IN THE ABDOMEN OR PELVIS TO EXPLAIN THE PATIENT'S SYMPTOM S.
== END | disposition home or self-care (01) ==
LOC: RADCTMAIN 12:19
PROVIDERS: ATTEND Internal Medicine Geriatric Medicine
DX: E27.9 Disorder of adrenal gland, unspecified (principal); R91.8 Other nonspecific abnormal finding of lung field
CPT/HCPCS: 74177; Q9967

== ENCOUNTER → 2023-04-20 | Outpatient (CLI) | payer BC ==
--- NOTE | 2023-04-20 09:44 | CT ---
EXAMINATION TYPE: CT chest w con CT DLP: 523.80 mGycm, Automated exposure control for dose reduction was used. DATE OF EXAM: 04/20/2023 9:08 AM COMPARISON: 01/01/2023 CLINICAL INDICATION:Female, 52 years old with history of R91.1 PULMONARY NODULE; [facility], Nodule was seen on last CT scan. Scanned by SO/SLS TECHNIQUE: Multiple axial images were obtained through the chest. Sagittal and coronal reformats were created for review. Contrast used:100mL mL of Isovue 300 with IV Contrast (None if empty) Oral contrast used: (None if empty) FINDINGS: LUNGS/ PLEURA: Mild scattered centrilobular emphysema changes. Stable left lower lobe 4 mm pulmonary nodule which may represent intrafissural lymph node. Stable right lower lobe 4 mm pulmonary nodule. R ight minor fissure intrafissural lymph node measuring 3 mm. No suspicious pulmonary nodules identifie d. No focal consolidation, pneumothorax or pleural fusion. AIRWAY: Patent and unremarkable. HEART: Size within normal limits. Mild to moderate coronary artery calcifications. MEDIASTINUM: No gross evidence of adenopathy. VASCULATURE: No aortic aneurysm. MUSCULOSKELETAL: Mild disc degeneration changes are present throughout the thoracolumbar spine. SOFT TISSUES/LYMPH NODES: Right thyroid lobe calcification. Left-sided 9 mm nodule. LOWER NECK: No significant findings. UPPER ABDOMEN: Diffuse low-attenuation to the liver parenchyma. The gallbladder surgically absent. Ri ght renal cyst. IMPRESSION: 1. Stable pulmonary nodular changes in the lung bases. No new pulmonary nodules or enlarged pulmonar y nodules which are suspicious. This is superimposed on mild emphysema changes. Recommend yearly low- dose lung cancer screening. 2. Hepatic steatosis. 3. Mild to moderate coronary artery cusp patient's.
== END | disposition home or self-care (01) ==
LOC: RADCTMAIN 08:33
PROVIDERS: ATTEND Internal Medicine Geriatric Medicine
DX: R91.1 Solitary pulmonary nodule (principal); K76.0 Fatty (change of) liver, not elsewhere classified; J43.2 Centrilobular emphysema
CPT/HCPCS: 71260; 36415; Q9967

== ENCOUNTER → 2023-09-24 | Outpatient (CLI) | payer BC ==
--- NOTE | 2023-09-24 11:32 | CT ---
EXAMINATION: CT ABDOMEN AND PELVIS WITH IV CONTRAST DATE OF EXAMINATION: 09/24/2023. COMPARISON: None available. INDICATION: Left-sided abdominal pain. PROCEDURE: Axial CT of the abdomen and pelvis was performed with contrast and sagittal and coronal reformatted images were performed. CT dose lowering techniques were used, to include: automated expos ure control, adjustment for patient size, and/or use of iterative reconstruction. 100 mL of Isovue 30 0 was given intravenously. FINDINGS: LOWER CHEST : The visualized lung bases are clear. There are no pleural or pericardial effusions. ABDOMEN: Liver and Biliary system: Normal. Adrenal glands: 2 cm nonspecific left adrenal nodule. The right adrenal appears unremarkable. Kidneys and ureters: 1.8 cm cyst in the interpolar region of the right kidney. The kidneys otherwise appear unremarkable. Spleen: Normal. Pancreas: Normal. Gallbladder: Surgically absent. Lymph nodes, Peritoneum and mesentery: There is no mesenteric or retroperitoneal lymphadenopathy. Gastrointestinal tract: There are no dilated loops of bowel or free intraperitoneal air. The appe ndix is normal. Aorta/IVC: There is mild vascular calcification throughout the abdominal aorta without evidence of aneurysmal dilation or dissection. IVC normal. Abdominal wall: Normal. PELVIS: Fluid: There is no free fluid in the pelvis. Lymph Nodes: There is no pelvic or inguinal lymphadenopathy.. Urinary bladder: Normal. BONES: There are no osseous destructive lesions.. ADDITIONAL SIGNIFICANT FINDINGS: None. IMPRESSION: No acute process within the abdomen or pelvis.
== END | disposition home or self-care (01) ==
LOC: RADCTMAIN 09:12
PROVIDERS: ATTEND Internal Medicine Geriatric Medicine
DX: K57.92 Diverticulitis of intestine, part unspecified, without perforation or abscess without bleeding (principal); R10.9 Unspecified abdominal pain
CPT/HCPCS: 74177; Q9967

== ENCOUNTER → 2024-04-14 | Outpatient (CLI) | payer BC ==
--- NOTE | 2024-04-17 14:32 | MM ---
Reason for Exam: Screening (asymptomatic). Last mammogram was performed 1 year(s) and 1 month(s) ago. Patient History: Menarche at age 12. First Full-Term at age 17. Postmenopausal. Risk Values: Veronica 5 year model risk: 0.8%. NCI Lifetime model risk: 6.2%. Prior Study Comparison: 03/25/2018 Bilateral Screening Mammogram, [facility]. 02/12/2022 Bilateral MG screening mammo w CAD, [facility]. 04/09/2023 Bilateral MG 3D screening mammo w/cad, [facility]. Tissue Density: The breasts are heterogeneously dense, which may obscure small masses. Findings: Analyzed By CAD. There is no suspicious group of microcalcifications or new suspicious mass in either breast. Overall Assessment: Benign, BI-RAD 2 Management: Screening Mammogram of both breasts in 1 year. . Patient should continue monthly self-breast exams. A clinical breast exam by your physician is recommended on an annual basis. This exam should not preclude additional follow-up of suspicious palpable abnormalities. Note on Veronica scores and lifetime risk: 1. A Veronica score greater than 3% is considered moderate risk. If this is the case, consider specialist referral to assess eligibility for a risk reducing agent. 2. If overall lifetime risk for the development of breast cancer is 20% or higher, the patient may qualify for future screening with alternating mammogram and breast MRI. [facility], , 04/17/2024 2:29 PM. Electronically signed and approved by: Harry James M.D. Radiologis
== END | disposition home or self-care (01) ==
LOC: RADMAMWWP 13:30
PROVIDERS: ATTEND Internal Medicine Geriatric Medicine
DX: Z12.31 Encounter for screening mammogram for malignant neoplasm of breast
CPT/HCPCS: 77063; 77067

== ENCOUNTER → 2024-09-19 | Outpatient (CLI) | payer BC ==
--- NOTE | 2024-09-19 15:12 | CA ---
Stress Echo Report Luana Rey Age: 54 Gender: F : 1970 Exam Date: 09/19/2024 10:43 Exam Location: [place] Stress Ht (in): 66 Wt (lb): 204 Ordering Physician: Walter Matthew MD Referring Physician: [facility] Medical: Prasanna Garaz Technologist Procedure CPT: Indication: R07.9 CHEST PAIN ICD-9 Codes: Rhythm: Patient History: Cardiac Medications: CRESTOR, AMLODIPINE Medications in past 24 hours: Contrast: N/A Stress Results Protocol: Sea Total dose(mL): NA Exercise Duration (min:sec): 6:[address] Depression (mm): Angina Score: Armstrong Score: METS: 7.3 Resting HR: 91 Resting BP: 103 / 72 Peak HR: 150 Peak BP: 163 / 80 Max Predicted HR: 166 90 % Max Predicted HR Target HR: 141 Double Product: [id number] Stress Summary: BP Response: Reason for Termination: MAX EXERTION/TARGET HR Cardiac Symptoms: NO SYMPTOMS ECG Analysis Resting ECG: Stress ECG: Arrhythmia: Echo Analysis Resting Echo: Peak Echo Analysis: MEASUREMENTS (Male/Female) Normal Values CONCLUSIONS Patient underwent exercise stress echo with a Sea protocol treadmill stress test. Patient exercised into Stage 2 for a total of 6 minutes reaching a total of 7.3 METS. Patient's maximum heart rate was 150 which represented 90% age-predicted maximum heart rate. Stress EKG portion: At baseline patient's EKG showed normal sinus rhythm, no ST or T wave abnormalities. At peak exercise, EKG showed no significant change from baseline. Stress echo portion: 2-D echocardiogram was performed in the parasternal long, personal short, apical 2 and apical four-chamber views at rest, peak exercise and in recovery. At baseline, echocardiogram showed left ventricular ejection fraction 55% without wall motion abnormalities. With peak exercise, echocardiogram shows improvement in left ventricular ejection fraction, increase contractility, decrease in left ventricular end systolic dimension without wall motion abnormalities consistent with a normal response to exercise. Conclusions: 1. Normal EKG and echo response to exercise without evidence of inducible ischemia. 2. Fair exercise capacity. Dr. Jake Tate DO (Electronically Signed) Final Date: 19 September 2024 15:11
== END | disposition home or self-care (01) ==
LOC: RADNMMAIN 09:45
PROVIDERS: ATTEND Internal Medicine Geriatric Medicine
DX: R07.9 Chest pain, unspecified (principal)
CPT/HCPCS: 93351

== ENCOUNTER → 2025-01-04 | Outpatient (CLI) | payer BC ==
--- NOTE | 2025-01-05 12:16 | CTL ---
EXAMINATION TYPE: CT Low Dose Lung DATE OF EXAM: 01/04/2025 3:48 PM COMPARISON: 04/20/2023 CLINICAL INDICATION: Female, 54 years old with history of Z12.2 SCREEN FOR MALIGNANT NEOPLASM,Z87.891 , Lung screening for nicotine dependence of 1ppd x36 years, quit smoking 2022, History of tobacco use . TECHNIQUE: Low dose computed tomography scan was performed through the chest at 1 mm thick sections a nd reconstructed images in multiple planes at 1 mm and [address] DLP: 100.6 mGycm, CT CTDI: 2.6 mGy, Automated exposure control for dose reduction was used. CT DIAGNOSTIC QUALITY: Satisfactory FINDINGS: The heart is normal size without pericardial effusion. LAD and RCA coronary calcifications are presen t. Aorta normal caliber with bovine configuration to the aortic arch. No thoracic lymph adenopathy by CT size criteria. Mild diffuse bronchial wall thickening. [id number] emphysematous change. Minimal biapical pleur al-parenchymal scarring. A few scattered small pulmonary nodules measuring up to 5 mm remain unchanged. Visualized upper abdomen shows cholecystectomy clips and a stable low-density nodule measuring 2.1 cm of the left adrenal gland suggesting a benign adrenal adenoma. Bones: Reverse S-shaped scoliosis. IMPRESSION: 1. LungRADS 2, benign. Stable scattered 5 mm and smaller pulmonary nodules. 2. COPD with mild to moderate emphysema. 3. Stable left adrenal adenoma. CT LUNG RAD AND CT CHEST RECOMMENDATION: Lung-Rad 2 Benign Appearance or Behavior: Continue annual sc reening with LDCT in 12 months. S Modifier (other clinically significant findings): None [facility], , 01/05/2025 12:14 PM
== END | disposition home or self-care (01) ==
LOC: RADCTMAIN 15:06
PROVIDERS: ATTEND Internal Medicine Geriatric Medicine
DX: Z12.2 Encounter for screening for malignant neoplasm of respiratory organs (principal); J43.9 Emphysema, unspecified; D35.02 Benign neoplasm of left adrenal gland; R91.1 Solitary pulmonary nodule; Z87.891 Personal history of nicotine dependence
CPT/HCPCS: 71271